=== PATIENT | female | born 1995 | race Caucasian/White ===

== ENCOUNTER 2016-11-01 03:59 | Inpatient (IN) ==
[2016-11-01] MEDS ORDERED: Famotidine 20 MG/2 ML VIAL IVP PRN (04:32)
[2016-11-01] MEDS ORDERED: Naloxone 0.4 MG/ML INJ IVP PRN (04:32)
[2016-11-01] MEDS ORDERED: miSOPROStol 25 MCG TABLET VG PRN (04:32)
[2016-11-01 04:43] LABS: Basophils % 0.2 %; Eosinophils # 0.1 K/mcL (0.0-0.6); Hematocrit 31.7 % (35.3-44.9); Hemoglobin 10.7 g/dL (11.5-15.4); Immature Granulocytes % 0.5 % (0-4); Lymphocytes % 21.3 %; Mean Corpuscular HGB Conc 33.8 g/dL (31.6-35.5); Mean Corpuscular Volume 88.8 fL (83.0-100.0); Mean Platelet Volume 11.9 fL (9.4-12.4); Monocytes # 0.6 K/mcL (0.0-1.3); Neutrophils # 6.5 K/mcL (1.6-8.9); Platelet Count 168 K/mcL (140-400); Red Blood Count 3.57 M/mcL (3.82-4.97); Red Cell Distribution Width 12.3 % (11.5-14.5)
[2016-11-01] MEDS: Mag Hydrox/Al Hydrox/Simeth 30 ML UDC PO PRN ×2 (05:44→13:58)
--- NOTE | 2016-11-01 08:06 | OB/GYN History & Physical ---
Date of Encounter: 11/01/16 Time of Encounter: 08:03 Assessment and Plan (1) 39 weeks gestation of Current visit: Yes Status: Acute Admit for elective IOL. SVE . GBS negative. EFW at 35 weeks was 5lbs 13 oz ( 45%). Cytotec 25mcg given vaginally upon arrival this am. Will check cervix after 4 hours and consider AROM if able. Epidural when requested. Anticipate . History of Present Illness Chief complaint: IOL HPI: Ms. Abdul is a 21 year old female presenting at 39 weeks gestation for elective IOL with favorable cervix at term. Pt requested IOL due to S/O leaving for [employer] [place]. Her was uncomplicated. Her blood type is O positive. Serologies and GBS negative. Rubella immune. Her 1 hour GTT was 150 but the 3 hour test was normal. She reports feeling well today with only some mild cramping in her back. Past Med Surg Social Fam HX - Past Medical History Medical history: non-contributory Psychiatric history: no psych history - Social History Smoking Status: Never smoker Smokeless Tobacco Status: No Alcohol use: none Drug use: none - Family History Mother Family Member Ethnicity: Non- Living Status: Still Living Hx Family Cardiac Disorders: Yes Hx Family Respiratory Disorders: No Hx Family Cancer: Yes Hx Family GI Disorders: No Hx Family Genitourinary Disorders: No Hx Family Endocrine Disorder: No Hx Family Musculoskeletal Disorders: No Hx Family Neuromuscular Disorders: No Hx Family Neurologic Disorders: No Hx Family HEENT Disorders: No Hx Family Autoimmune Disorders: No Hx Family Reproductive Disorders: No Hx Family Psychosocial Disorders: No Hx Family Medical Disorders: No Obstetrical History - Pregnancies : 1 Para: 0 Medications and Allergies Calcium Carb,Gluc/Mag Ox,Gluc [Calcium Magnesium Caplet] 1 tab PO DAILY [History] Famotidine [Pepcid] 20 mg PO PRN PRN 11/01/16 [History] Pnv95/Ferrous Fumarate/FA [ Caplet] 1 tab PO DAILY 11/01/16 [History] Allergies Erythromycin Base Allergy (Verified 07/10/15 17:22) Hives Review of System OB All systems PM: reviewed and no additional remarkable complaints except as stated Exam - Constitutional Constitutional: well developed, well nourished, no acute distress - HEENT HEENT: Mucus Membranes Moist - Lungs Respiratory exam: CTAB - Cardiovascular Cardiovascular exam: RRR, +S1, +S2 - Abdomen Abdomen: Present: gravid, non tender - Extremities Extremities exam: normal inspection - Vulva Vulva: bilateral: normal - Vagina Vagina: Present: normal moisture - Cervix Dilation: 3 Effacement: 80 - Uterus Uterus exam: Present: normal size - Anus/Rectum Anus/Rectum: Present: normal perianal skin Results Result Diagrams: 11/01/16 04:14 Abnormal lab results RBC 3.57 M/mcL (3.82-4.97) L 11/01/16 04:14 Hgb 10.7 g/dL (11.5-15.4) L 11/01/16 04:14 Hct 31.7 % (35.3-44.9) L 11/01/16 04:14 All other labs normal. - VTE Reasons for not Prescribing Prophylaxis: Treatment not Indicated - Low risk for VTE
--- NOTE | 2016-11-01 10:07 | OB Labor Progress Note ---
Date of Encounter: 11/01/16 Time of Encounter: 10:05 Labor Progress Note - Subjective Subjective: Pt with mild discomfort with contractions. - Cervix Cervix: 3-4/80/-1 - Heart Tones Heart Tones: Category I - Falling Water Falling Water: 2-3 minutes - Interventions Interventions: AROM for large amount clear fluid, IUPC placed - Plan Plan: Continue to monitor. Will augment with Pitocin if needed for adequate contractions. Epidural when requested. Anticipate .
[2016-11-01] MEDS ORDERED: Ringers Solution, Lactated 1,000 ML ONE ×2 (10:31→10:47)
[2016-11-01] MEDS ORDERED: Epidural Premix (fent/bupiv) 110 ML EP ONE (10:50)
--- NOTE | 2016-11-01 11:15 | Anesthesia Procedures ---
Date of Encounter: 11/01/16 Time of Encounter: 10:55 Procedures: Anesthesia - Epidural/Spinal Patient ID/Chart reviewed: Yes Patient examined: Yes OB Eval: Gestational age: term OB Eval: : 1 OB Eval: Contractions: Non-stressed pattern Supplemental Oxygen: None/Room Air Site Prep: Aseptic Technique, Sterile prep and drape, 0.5% Chlorhexidine/Alcohol Patient position: upright Local Anesthetic: Lidocaine 1% Amount of Local Anesthetic used: 2 Touhy Needle Gauge: 18 Touhy Needle Depth (cm): 6 Catheter Depth at Skin (cm): 10 Test Dose (1.5% Lido + Epi): Volume given (mls): 3 Test Dose Result: Negative Loading Dose: Other: 12ml from kaitlynn Loading Dose Administered: Thru Catheter Infusion Med: 0.125% Bupivacaine w/ 2 mcg/ml Fentanyl Infusion Rate (mls/hr): [address]: Tegaderm, Tape Interspace Used: L3-L4 Loss of Resistance (CARLOS): Yes (saline) Blood: No CSF: No Paresthesia: No Vitals + FHT's: fhr stable per rn's , vss
--- NOTE | 2016-11-01 11:17 | Anesthesia Evaluation PreOp ---
Date of Encounter: 11/01/16 Time of Encounter: 10:55 - Past History Planned Operation: vaginal del, Cardiac History: Denies any Significant Hx Pulmonary History: Denies Any Significant HX TRAM OPERATOR History: Denies Any Significant HX Other Medical History: Denies Any Significant HX Anesthesia History: No Prior Anesthetic Complications ("arm rash"), Past Anesthesia Alcohol Use: none Drug use: none Medications and Allergies Calcium Carb,Gluc/Mag Ox,Gluc [Calcium Magnesium Caplet] 1 tab PO DAILY [History] Famotidine [Pepcid] 20 mg PO PRN PRN 11/01/16 [History] Pnv95/Ferrous Fumarate/FA [ Caplet] 1 tab PO DAILY 11/01/16 [History] Allergies Erythromycin Base Allergy (Verified 07/10/15 17:22) Hives Anesthesia Results - Labs 11/01/16 04:14 Anesthesia Exam - HEENT Pupil (Motor): Pupils equal Mallampati: II Teeth: Normal Oral Opening: Greater than 3 - TRAM OPERATOR LOC: Oriented TRAM OPERATOR Motor: Normal RUE, Normal LUE, Normal RLE, Normal LLE, Normal Face TRAM OPERATOR Sensory: Normal: RUE, LUE, RLE, LLE, Face - Cardiac Rhythm: Regular - Pulmonary Breath Sounds: bilateral Clear Respiratory Effort: Symmetrical Anesthesia Assess/Plan ASA Score: 2 Modified Katherine Scale for Level of Consciousness: Cooperative, oriented, and tranquil Anesthetic Plan: General, Regional Monitoring Plan: Standard Monitors Recovery Plan: PACU
[2016-11-01] MEDS ORDERED: Oxytocin 20 units/ LR 1000 mL 20 UNIT/1,000 ML BAG IVC ONE ×4 (11:48→17:05)
--- NOTE | 2016-11-01 14:53 | OB/GYN Procedure Note ---
Delivery - Delivery Date: 11/01/16 Provider: Jewell Wilkinson Intrapartum events: none Delivery induction: misoprostol Delivery augmentation: rupture of membranes Delivery monitor: external FHT, internal uterine Anesthesia: epidural Estimated Blood Loss: 150 - (s) A Infant Delivery Date: 11/01/16 Delivery Time: 14:20 Presentation: vertex Position: JASON Route of delivery: Gender: Male Viability: Viable Pounds: 7 Ounces: 5 Weight Gram: 3310 kg at 1 minute: 8 at 5 mins: 9 Shoulder Dystocia: not encountered Specimens collected: cord blood Placenta: spontaneous Cord: 3 umbilical vessels - Repair Episiotomy: none Laceration Description: Labial (right labial) - Complications Delivery complications: none Delivery comments: Patient progressed to completed and patient felt pressure to push with contractions. Patient was placed in stirrups and began pushing with contractions. Delivery of male infant in JASON. No nuchal, no meconium, no shoulder dystocia encountered. was placed on maternal abdomen. Cord was clamped and cut after pulsation ceased. was placed skin to skin. A right labial laceration was repaired with 4-0 viryl. Placenta delivered spontaneously and intact. Both mother and baby are stable in recovery. - Disposition Mom disposition: stable in LDR disposition: stable in LDR
[2016-11-01] MEDS ORDERED: Measles/Mumps/Rubella Vacc 0.5 ML VIAL SQ PRN (17:05)
[2016-11-01] MEDS ORDERED: Ibuprofen 600 MG TABLET PO PRN (17:05)
[2016-11-01] MEDS ORDERED: Acetaminophen 325 MG TABLET PO PRN (17:05)
[2016-11-01] MEDS ORDERED: Oxytocin 20 units/ LR 1000 mL 20 UNIT/1,000 ML BAG IV SCH (17:05)
[2016-11-01] MEDS ORDERED: Rho Immune Globulin 1,500 UNIT SYRINGE IM PRN (17:05)
[2016-11-02 07:43] VITALS: BP 95/67
--- NOTE | 2016-11-02 08:16 | Discharge Summary ---
Date of Encounter: 11/02/16 Time of Encounter: 08:14 - Discharge Diagnosis (1) (normal spontaneous vaginal delivery) Priority: Primary Status: Acute Comments: Pt meeting milestones. (2) Encounter for care or examination of lactating mother Priority: Secondary Status: Acute - Discharge Medications Prescriptions: Ibuprofen [Motrin] 600 mg PO Q6HR PRN #60 tablet PRN Reason: Cramping Docusate [Colace] 100 mg PO BID #60 capsule Home Medications: Calcium Carb,Gluc/Mag Ox,Gluc [Calcium Magnesium Caplet] 1 tab PO DAILY [History] Famotidine [Pepcid] 20 mg PO PRN PRN 11/01/16 [History] Pnv95/Ferrous Fumarate/FA [ Caplet] 1 tab PO DAILY 11/01/16 [History] Breast Pump [BREAST PUMP] 1 each .ROUTE AD #1 each 11/02/16 [Rx] Docusate [Colace] 100 mg PO BID #60 capsule 11/02/16 [Rx] Ibuprofen [Motrin] 600 mg PO Q6HR PRN #60 tablet 11/02/16 [Rx] Allergies/Adverse Reactions: Allergies Erythromycin Base Allergy (Verified 07/10/15 17:22) Hives Data Procedures and tests throughout hospitalization: Laboratory Tests 11/01/16 04:14 WBC 9.2 RBC 3.57 L Hgb 10.7 L Hct 31.7 L MCV 88.8 MCH 30.0 MCHC 33.8 RDW 12.3 Plt Count 168 MPV 11.9 Immature Gran % 0.5 Seg Neutrophils % 71.0 Lymphocytes % 21.3 Monocytes % 6.0 Eosinophils % 1.0 Basophils % 0.2 Neutrophils # 6.5 Lymphocytes # 2.0 Monocytes # 0.6 Eosinophils # 0.1 Basophils # 0.0 Date of admission: 11/01/16 03:59 Primary care physician: Marilin Corral CNP Consults: 11/01/16 17:05 Consult to Shipping Track Supervisor [CONS] Routine Comment: Vaginal delivery, consult needed Discharging clinician: Jessica Hernández Anticipated date of discharge: 11/02/16 - Patient Status Disposition: Home, Self-Care Condition: Good Functional capacity at discharge: independent ambulation Overall status at discharge: patient is progressing back to baseline - Discharge Instructions Follow Up With: Shayna,Marilin L, FAST FOOD SALES ASSISTANT [Primary Care Provider] - Jewell Wilkinson CNM [Advanced Practice Nurse] - - Diet and Activity Activity: increase activity as tolerated Diet: advance to your usual diet Hospital Course Reason for admission: induction of labor Delivery: Episiotomy: none Laceration: other (labial) Other procedures: none complications: none Discharge diagnosis: IUP at term delivered Dresher baby: male Hospital course: - Delivery Date: 11/01/16 Provider: Jewell Wilkinson Intrapartum events: none Delivery induction: misoprostol Delivery augmentation: rupture of membranes Delivery monitor: external FHT, internal uterine Anesthesia: epidural Estimated Blood Loss: 150 - (s) A Delivery Date: 11/01/16 Delivery Time: 14:20 Presentation: vertex Position: JASON Route of delivery: Gender: Male Viability: Viable Pounds: 7 Ounces: 5 Weight Gram: 3310 kg at 1 minute: 8 at 5 mins: 9 Shoulder Dystocia: not encountered Specimens collected: cord blood Placenta: spontaneous Cord: 3 umbilical vessels - Repair Episiotomy: none Laceration Description: Labial (right labial) - Disposition Mom disposition: home day 1 Dresher disposition: home with mother, Time Attestation: Total time spent providing and/or coordinating discharge services: Time Spent: Less than 30 minutes Exam - Constitutional Vitals: Temp Pulse Resp BP Pulse Ox 98.5 F 60 16 95/67 97 11/02/16 07:42 11/02/16 07:42 11/02/16 07:42 11/02/16 07:42 11/02/16 07:42 General appearance IM: A&O X 3, pleasant, no acute distress - Respiratory Respiratory exam: Present: CTAB - Cardiovascular Cardiovascular exam IM: Present: RRR, +S1, +S2 - GI/Abdominal GI/Abdominal exam IM: soft - Rectal Rectal exam: deferred - External exam: normal external exam, swelling (mild) Uterine Tone: Firm Uterus Position: 2 Fingers Below Umbilicus - Extremities Exam Extremities exam IM: Present: normal inspection - Neurological Exam Neurological exam: normal gait, oriented X3 - Psychiatric Additional comments: reports good mood
[2016-11-02] MEDS ORDERED: Prenatal Vit/FA 1 EACH TABLET PO SCH (09:00)
[2016-11-02] MEDS ORDERED: CALCIUM CARB GLUC PO SCH (09:00)
[2016-11-02] MEDS ORDERED: MAG OX GLUC PO SCH (09:00)
== END 2016-11-02 17:40 | disposition home or self-care (01) | DRG 560 ==
LOC: 1NENULAB 03:59 → 1NENUOBS 17:01
PROVIDERS: ADMIT Registered Nurse; ATTEND Registered Nurse

== ENCOUNTER 2022-03-01 07:58 | Inpatient (IN) ==
[2022-03-01] MEDS ORDERED: Azithromycin 500 MG in 0.9 % Sodium Chloride 250 ML IVPB PRN (08:27)
[2022-03-01] MEDS ORDERED: Ringers Solution, Lactated 1,000 ML IVC ONE (08:27)
[2022-03-01] MEDS ORDERED: OXYTOCIN/RINGERS LACTATE 10 UNIT/166.6 ML BAG IVC ONE (08:27)
[2022-03-01] MEDS ORDERED: Famotidine 20 MG/2 ML VIAL IVP ONE (08:27)
[2022-03-01] MEDS ORDERED: Metoclopramide 10 MG/2 ML VIAL IVP ONE (08:27)
[2022-03-01] MEDS ORDERED: CeFAZolin 2,000 MG/120 ML BAG IVPB ONE (08:27)
[2022-03-01] MEDS ORDERED: Oxytocin 30 UNIT/503 ML BAG IVC ONE (08:29)
[2022-03-01] MEDS ORDERED: Ringers Solution, Lactated 1,000 ML ONE (08:29)
[2022-03-01] MEDS ORDERED: Ringers Solution, Lactated 1,000 ML IVC SCH ×2 (08:30→10:43)
[2022-03-01] MEDS ORDERED: Oxytocin 30 UNIT/503 ML BAG IVC SCH ×2 (08:30→10:43)
[2022-03-01] MEDS ORDERED: *HR* Propofol 200 MG/20 ML VIAL IVP ONE (08:33)
[2022-03-01] MEDS ORDERED: Ondansetron 4 MG/2 ML VIAL ONE (08:50)
[2022-03-01] MEDS ORDERED: Acetaminophen IV 1,000 MG/100 ML BAG IVPB ONE (08:50)
[2022-03-01] MEDS ORDERED: Ketorolac 30 MG/ML VIAL ONE (08:51)
[2022-03-01] MEDS ORDERED: *HR* FentaNYL (PF) 100 MCG/2 ML VIAL ONE (08:51)
[2022-03-01 08:56] LABS: Basophils % 0.3 %; Eosinophils # 0.1 K/mcL (0.0-0.6); Eosinophils % 0.5 %; Hematocrit 39.8 % (35.3-44.9); Hemoglobin 12.9 g/dL (11.5-15.4); Immature Granulocytes % 0.7 % (0-4); Lymphocytes # 1.5 K/mcL (0.6-4.6); Lymphocytes % 12.4 %; Mean Corpuscular HGB Conc 32.4 g/dL (31.6-35.5); Mean Corpuscular Hemoglobin 29.8 pg (28.0-33.3); Mean Corpuscular Volume 91.9 fL (83.0-100.0); Mean Platelet Volume 11.2 fL (9.4-12.4); Monocytes # 0.7 K/mcL (0.0-1.3); Monocytes % 5.6 %; Neutrophils # 9.4 K/mcL (1.6-8.9); Platelet Count 225 K/mcL (140-400); Red Blood Count 4.33 M/mcL (3.82-4.97); Red Cell Distribution Width 12.8 % (11.5-14.5); Segmented Neutrophils % 80.5 %; White Blood Count 11.7 K/mcL (4.3-11.1)
[2022-03-01 09:02] LABS: Amphetamine Screen,Urine Negative ng/mL (Cutoff=1000); Barbiturate Screen,Urine Negative ng/mL (Cutoff=200); Benzodiazepines Screen,Urine Negative ng/mL (Cutoff=200); Cannabinoid Screen,Urine Negative ng/mL (Cutoff = 50); Cocaine Screen,Urine Negative ng/mL (Cutoff= 300); Opiate Screen,Urine Negative ng/mL (Cutoff=300); Phencyclidine Screen,Urine Negative ng/mL (Cutoff=25)
[2022-03-01 09:26] LABS: Influenza A PCR Negative (Negative); Influenza B PCR Negative (Negative); Resp. Syncytial Virus PCR Negative (Negative)
[2022-03-01 09:27] LABS: SARS-CoV-2 by PCR (In House) Negative (Negative)
[2022-03-01] MEDS ORDERED: Ondansetron 4 MG/2 ML VIAL IVP PRN ×2 (09:53→10:43)
[2022-03-01] MEDS ORDERED: Promethazine 6.25 MG in Water for inj. (sterile) 20 ML IVPB PRN (09:53)
[2022-03-01] MEDS ORDERED: *HR* HYDROmorphone PF 0.5 MG/0.5 ML SYRINGE IVP PRN (09:53)
[2022-03-01] MEDS ORDERED: Metoclopramide 10 MG/2 ML VIAL IVP PRN (10:43)
[2022-03-01] MEDS ORDERED: Simethicone 80 MG TAB.CHEW PO PRN (10:43)
[2022-03-01] MEDS: *HR* HYDROmorphone PCA *PREMADE* 20 MG/1MG/ML (20mL) PCA VIAL IVC PRN ×2 (11:50→22:08)
[2022-03-01] MEDS ORDERED: Methylergonovine 0.2 MG/ML AMPUL IM ONE (12:30)
[2022-03-01] MEDS: CeFAZolin 2,000 MG/120 ML BAG IVPB SCH (16:12)
[2022-03-01] MEDS: Acetaminophen 325 MG TABLET PO SCH (16:16)
[2022-03-01] MEDS: Famotidine 20 MG TABLET PO SCH ×2 (16:16→20:42)
[2022-03-01] MEDS: Ibuprofen 600 MG TABLET PO SCH (20:41)
[2022-03-01] MEDS ORDERED: Famotidine 20 MG TABLET PO SCH (21:00)
[2022-03-02] MEDS: *HR* OxyCODONE/APAP 5/325 TABLET PO PRN ×3 (00:48→15:05)
[2022-03-02] MEDS: CeFAZolin 2,000 MG/120 ML BAG IVPB SCH ×2 (00:49→07:28)
[2022-03-02] MEDS: Ibuprofen 600 MG TABLET PO SCH ×3 (02:02→19:43)
[2022-03-02 04:53] LABS: Basophils % 0.3 %; Eosinophils % 0.2 %; Hematocrit 30.2 % (35.3-44.9); Immature Granulocytes % 0.6 % (0-4); Lymphocytes # 1.9 K/mcL (0.6-4.6); Lymphocytes % 12.1 %; Mean Corpuscular HGB Conc 33.4 g/dL (31.6-35.5); Mean Corpuscular Hemoglobin 30.3 pg (28.0-33.3); Mean Corpuscular Volume 90.7 fL (83.0-100.0); Mean Platelet Volume 11.4 fL (9.4-12.4); Monocytes # 1.1 K/mcL (0.0-1.3); Neutrophils # 12.7 K/mcL (1.6-8.9); Platelet Count 206 K/mcL (140-400); Red Blood Count 3.33 M/mcL (3.82-4.97); Red Cell Distribution Width 12.7 % (11.5-14.5); Segmented Neutrophils % 79.8 %; White Blood Count 15.9 K/mcL (4.3-11.1)
[2022-03-02 05:05] LABS: Hemoglobin 10.1 g/dL (11.5-15.4)
[2022-03-02] MEDS: Famotidine 20 MG TABLET PO SCH ×2 (07:27→19:44)
[2022-03-02] MEDS: Prenatal Vit/FA 1 EACH TABLET PO SCH (08:21)
[2022-03-02] MEDS ORDERED: Lanolin 7 G OINT...G. TP PRN (08:47)
[2022-03-02] MEDS: Acetaminophen 325 MG TABLET PO SCH ×2 (11:53→19:43)
[2022-03-03] MEDS: *HR* OxyCODONE/APAP 5/325 TABLET PO PRN ×3 (00:10→11:43)
[2022-03-03] MEDS: Ibuprofen 600 MG TABLET PO SCH ×2 (02:05→08:37)
[2022-03-03] MEDS: Acetaminophen 325 MG TABLET PO SCH ×2 (02:05→08:37)
[2022-03-03 07:14] VITALS: BP 106/67; PULSE 68; TEMP 98.2; O2SAT 98
[2022-03-03] MEDS: Famotidine 20 MG TABLET PO SCH (08:36)
[2022-03-03] MEDS: Prenatal Vit/FA 1 EACH TABLET PO SCH (08:37)
== END 2022-03-03 12:31 | disposition home or self-care (01) | DRG 540 ==
LOC: 1NENULAB → OBSVTOIN 07:58 → 1NENUOBS 12:19
PROVIDERS: ADMIT Advanced Practice Midwife; ATTEND Advanced Practice Midwife